=== PATIENT | female | born 1950 | race Caucasian/White ===

== ENCOUNTER → 2016-12-11 | Outpatient (CLI) | payer MEDICARE, BC ==
--- NOTE | 2016-12-14 10:43 | RSPPFT ---
DATE OF PROCEDURE: 12/11/16 COMMENTS: VOLUMES DYNAMIC: FVC and FEV1 mildly reduced. STATIC: TLC, FRC normal; RV very mildly increased. FLOWS: FEV1% mildly reduced; FEF 25-75 moderately reduced. DIFFUSION: Normal. FLOW VOLUME LOOP: Pattern of variable intrathoracic airways obstruction. IMPRESSION: Very mild obstructive ventilatory defect with improvement post-bronchodilator and normal diffusion. Airways resistance is increased. There is very mild hyperinflation.
== END ==
LOC: HRSP 08:45
PROVIDERS: ATTEND Internal Medicine
DX: J45.909 Unspecified asthma, uncomplicated (principal); R06.02 Shortness of breath
CPT/HCPCS: 94060; 94620; 94726; 94729; 95012